=== PATIENT | female | born 1975 | race Caucasian/White ===

== ENCOUNTER → 2021-07-02 | Outpatient (CLI) | payer OTHER ==
[~2021-07-02] MED LIST: FLEXERIL 10 MG10 MG PO; IBUPROFEN800 MG PO; TORADOL 10 MG T10 MG PO
== END ==
LOC: KOH-I 06-05 14:30 → CT 15:20
DX: J32.9 Chronic sinusitis, unspecified (principal)
CPT/HCPCS: 70486